=== PATIENT | male | born 1980 | race Caucasian/White ===

== ENCOUNTER 2025-07-04 00:23 | Emergency (ER) | payer SELFPAY ==
[2025-07-04 00:24] VITALS: BP 150/79; PULSE 103; TEMP 36.6; O2SAT 98; BMI 27.9
[2025-07-04 00:30] VITALS: O2SAT 98
--- OUTSIDE RECORDS SUMMARY | 2025-07-04 00:35 | XMS_ITS | Clinical Summary ---
Author Organization [facility] Address [address] [place] [address] Care Team Providers Care Diesel Technology Instructor Name Role Phone Carla Martínez NP Unavailable Monty Kee MD Primary Care Provider Social History Tobacco Use Types Packs/Day Years Used Date Smoking Tobacco: Never Assessed Sex and Gender Information Value Date Recorded Sex Assigned at Not on file Legal Sex Male 1:24 PM EDT Gender Identity Not on file Sexual Orientation Not on file Plan of Treatment Not on file Insurance [facility] Care Teams Diesel Technology Instructor Relationship Specialty Start Date End Date Monty Kee MD PCP - General Family Medicine 04/14/24 Carla Martínez NP Referring Physician Family Medicine 04/14/24
--- OUTSIDE RECORDS SUMMARY | 2025-07-04 00:36 | XMS_ITS | Encounter Summary ---
Author Organization [facility] Address [facility] [id number] [address] [place] [address] Care Team Providers Care Inventory Control Associate Name Role Phone Carla Martínez QUENCHING CAR OPERATOR-RADIO RECORDER Primary Care Provide r Reason for Visit * Reason Comments Med Refill Encounter Details Date Type Department Care Team (Late st Contact Info) Description 12/11/2023 Refill [facility] [address] [place] [address] Carla Martínez APRN-RADIO RECORDER [address] [place] [address] Social History Tobacco Use Types Packs/Day Years Used Date Smoking Tobacco: Every Day Cigarettes Smokeless Tobacco: Never Alcohol Use Standard Drinks/Week Comments Not Currently 0 (1 standard drink = 0.6 oz pur e alcohol) occasional Overall Financial Resource Strain (CARDIA) Answe r Date Recorded How hard is it for you to pa y for the very basics like food, housing, medical care, and heating? Not hard at all 12/28/2022 Childcare Answer Date Recorded Childcare Unknown 05/05/2019 Employment Answer Date Recorded Employment Unknown 05/05/2019 Hunger Screening Answer Date Recorded Within the past 12 months we worried whether our food would run out before we got money to buy more. Never True 12/28/2022 Within the past 12 months th e food we bought just didn't last and we didn't have money to get more. Never True 12/28/2022 Sex and Gender Information Value Date Recorded Sex Assigned at Not on file Legal Sex Male 5:21 PM EDT Gender Identity Not on file Sexual Orientation Not on file documented as of this encounter Miscellaneous Notes * Telephone Encounter - FARHAT Garber - 12/11/2023 4:05 PM EST Does he need this refilled or started again? * Telephone Encounter - Nallely Borjas CMA - 12/11/2023 4:05 PM EST Left message for patient to call office to clarify. documented in this encounter Plan of Treatment Not on file documented as of this encounter Visit Diagnoses Not on filedocumented in this encounter Additional Health Concerns Assessment Noted Time A Body Mass Index follow-up plan has been documented for the patient 10/08/2023 8:54 AM EST documented as of this encounter Care Teams Inventory Control Associate Relationship Specialty Start Date End Date Carla Martínez APRN-CNP [address] [place] [address] PCP - General Family Medicine 10/08/23 documented as of this encounter
--- OUTSIDE RECORDS SUMMARY | 2025-07-04 00:36 | XMS_ITS | Encounter Summary ---
Author Organization [facility] [employer] [facility] Address [id number] [address] [place] [address] Care Team Providers Care Higher Education Administrator Name Role Phone Carla Martínez HIGH SCHOOL HVAC R INSTRUCTOR-DIE TRY OUT WORKER STAMPING Primary Care Provide r Reason for Visit * Reason Comments Med Refill Encounter Details Date Type Department Care Team (Late st Contact Info) Description 06/30/2025 Refill [facility] [address] [place] [address] Carla Martínez APRN-CNP [address] [place], [place] [id number] Social History Tobacco Use Types Packs/Day Years Used Date Smoking Tobacco: Former Cigarettes 0.5 30 1 994 - 12/11/2023 Smokeless Tobacco: Never Alcohol Use Standard Drinks/Week Comments Yes 2 (1 standard drink = 0.6 oz pure alcohol) occasional (1-2 drinks on his days off work) Overall Financial Resource Strain (CARDIA) Answe r Date Recorded How hard is it for you to pa y for the very basics like food, housing, medical care, and heating? Not hard at all 12/28/2022 PHQ-2 Answer Date Recorded Total Score 0 12/08/2024 Childcare Answer Date Recorded Childcare Unknown 05/05/2019 Employment Answer Date Recorded Employment Unknown 05/05/2019 Hunger Screening Answer Date Recorded Within the past 12 months we worried whether our food would run out before we got money to buy more. Never True 12/08/2024 Within the past 12 months th e food we bought just didn't last and we didn't have money to get more. Never True 12/08/2024 Sex and Gender Information Value Date Recorded Sex Assigned at Not on file Legal Sex Male 5:21 PM EDT Gender Identity Not on file Sexual Orientation Not on file documented as of this encounter Plan of Treatment Not on file documented as of this encounter Visit Diagnoses Not on filedocumented in this encounter Additional Health Concerns Assessment Noted Time PHQ-9 Depression Total Score: 0 12/08/19 25 1:31 PM EST A Body Mass Index follow-up plan has been documented for the patient 05/11/2024 9:11 AM EDT documented as of this encounter Care Teams Higher Education Administrator Relationship Specialty Start Date End Date Carla Martínez APRN-AUGUSTINE [address] [place] [address] PCP - General Family Medicine 10/08/23 documented as of this encounter
--- OUTSIDE RECORDS SUMMARY | 2025-07-04 00:36 | XMS_ITS | Encounter Summary ---
Author Organization [employer] Sys [employer] Address [id number] [address] [place] [address] Care Team Providers Care Gristmill Operator Name Role Phone Carla Martínez PHYSICAL EDUCATION TEACHER-PARALEGAL SPECIALIST Primary Care Provide r Encounter Details Date Type Department Care Team (Late st Contact Info) Description 12/18/2023 Orders Only [facility] [address] [place] [address] Carla Martínez APRN-CNP [address] [place], [place] [phone] Social History Tobacco Use Types Packs/Day Years [...] documented as of this encounter Care Teams Gristmill Operator Relationship Specialty Start Date End Date Carla Martínez APRN-AUGUSTINE [address] [place] [address] PCP - General Family Medicine 10/08/23 documented as of this encounter
--- OUTSIDE RECORDS SUMMARY | 2025-07-04 00:36 | XMS_ITS | Clinical Summary ---
Author Organization [employer] Address [id number] [address] [place] [address] Care Team Providers Care Child Care Associate Name Role Phone RubioCarla carlos DISASSEMBLER PRODUCT-ACCOUNT GENERAL MANAGER Primary Care Provide r Allergies No known active allergies Medications albuterol (PROVENTIL HFA;VENTOLIN HFA) 90 mcg/actuation inhalerIndicati ons:chronic obstructive pulmonary disease Inhale 2 puffs every 6 (six) hours as needed for wheezing Indications: chronic obstructive pulmonary disease. 18 g 5 10/08/20 23 Active fluticasone propion-salmete roL (ADVAIR DISKUS) 250-50 mcg/dose DISKUSIndicatio ns:Chronic obstructive pulmonary disease, unspecified COPD type (CMS-HCC),Moder ate persistent asthma without complication Inhale 1 puff in the morning and 1 puff before bedtime. 60 each 11 12/18/19 24 Active albuterol (PROVENTIL,VENT JOSE) 2.5 mg /3 mL (0.083 %) nebulizer solutionIndicat ions:Chronic obstructive pulmonary disease, unspecified COPD type (CMS-HCC),Moder ate persistent asthma without complication Inhale 3 mL (2.5 mg total) by nebulization 4 (four) times a day as needed for shortness of breath or wheezing. 360 mL 6 12/18/19 24 Active sildenafiL (VIAGRA) 100 mg tablet Take 1 tablet (100 mg total) by mouth as needed for erectile dysfunction. 30 tablet 12/08/19 25 Active famotidine (PEPCID) 20 mg tablet Take 1 tablet (20 mg total) by mouth in the morning and 1 tablet (20 mg total) before bedtime. 60 tablet 12/08/19 25 Active hydrOXYzine (ATARAX) 50 mg tablet Take 1 tablet (50 mg total) by mouth nightly as needed for itching or anxiety. 30 tablet 12/08/19 25 Active sertraline (ZOLOFT) 50 mg tablet TAKE 1 TABLET BY MOUTH IN THE MORNING 90 tablet 06/30/20 25 Active sertraline (ZOLOFT) 50 mg tablet Take 1 tablet (50 mg total) by mouth in the morning. 90 tablet 1 12/08/19 25 2024 Discontinued Active Problems Problem Noted Date Diagnosed Date Moderate persistent asthma without complication 12/18/2023 COPD (chronic obstructive pulmonary disease) Dizziness 12/27/2022 Erectile dysfunction 03/30/2018 Encounters Date Type Department Care Team Description 06/30/2025 Refill [facility] [address] [facility] [place] [address] Anni Huff LPN 06/30/2025 Refill [facility] [place] [address] Carla Martínez APRN-AUGUSTINE from Last 3 Months Immunizations No known immunizations Social History Tobacco Use Types Packs/Day Years Used Date Smoking Tobacco: Former Cigarettes 0.5 30 1 994 - 12/11/2023 Smokeless Tobacco: Never Tobacco Cessation:Counseling Given: Not Answered Alcohol Use Standard Drinks/Week Comments Yes 2 [...] on file Sexual Orientation Not on file Last Filed Vital Signs Vital Sign Reading Time Taken Comments Blood Pressure 124/60 12/08/2024 1:31 PM EST Pulse 80 12/08/2024 1:31 PM EST Temperature 36.7 C (98.1 F) 12/28/2022 11:51 AM EST Respiratory Rate 18 12/08/2024 1:31 PM EST Oxygen Saturation 96% 12/08/2024 1:31 PM EST Inhaled Oxygen Concentration - - Weight 105.2 kg (232 lb) 12/08/2024 1:31 PM EST Height 177.8 cm (5' 10 ) 12/18/2023 11:07 AM EST Body Mass Index 33.29 12/18/2023 11:07 AM EST Plan of Treatment Health Maintenance Due Date Last Done Comments DTaP,Tdap and Td Vaccines (1 - Tdap) 1997 Influenza Vaccine 07/25/2025 08/28/2021, , 10/05/2018 Adult BMI Screening 12/08/2025 12/08/2024 Depression Screening 12/08/2025 12/08/2024 Tobacco Screening 12/08/2025 12/08/2024 Medical Devices Not on file Insurance [employer] Advance Directives * Full Code (Latest Code Status on File) Date Activated Date Inactivated Comments 12/27/2022 11:22 PM 12/28/2022 6:29 PM Care Teams Child Care Associate Relationship Specialty Start Date End Date Carla Martínez APRN-ACCOUNT GENERAL MANAGER [address] [place] [address] PCP - General Family Medicine 10/08/23
--- OUTSIDE RECORDS SUMMARY | 2025-07-04 00:36 | XMS_ITS | Encounter Summary ---
Author Organization [email or web address] Sys tem Address [id number] [address] [place] [address] Care Team Providers Care Quarry Plug And Feather Driller Name Role Phone Carla Martínez SHIFT LAB TECHNICIAN-NP Primary Care Provide r Reason for Visit * Reason Onset Date Comments Med Refill 06/30/2025 Encounter Details Date Type Department Care Team (Late st Contact Info) Description 06/30/2025 Refill [facility] [address] [place] [phone] Anni Huff LPN Social History Tobacco Use Types Packs/Day Years [...] documented as of this encounter Care Teams Quarry Plug And Feather Driller Relationship Specialty Start Date End Date Carla Martínez APRN-AUGUSTINE [address] [place] [address] PCP - General Family Medicine 10/08/23 documented as of this encounter
--- OUTSIDE RECORDS SUMMARY | 2025-07-04 00:36 | XMS_ITS | Encounter Summary ---
Author Organization [facility] [employer] [facility] Address [id number] [address] [place] [address] Care Team Providers Care Double End Chucking Machine Operator Name Role Phone Carla Martínez HOUSEKEEPER AND LAUNDRY ASSISTANT-VEST PRESSER Primary Care Provide r Reason for Visit * Reason Comments Med Refill Encounter Details Date Type Department Care Team (Late st Contact Info) Description 12/19/2023 Refill [facility] [address] [place] [address] Carla Martínez APRN-CNP [address] [place], [place] [phone] Social History Tobacco Use Types Packs/Day Years [...] documented as of this encounter Care Teams Double End Chucking Machine Operator Relationship Specialty Start Date End Date Carla Martínez APRN-AUGUSTINE [address] [place] [address] PCP - General Family Medicine 10/08/23 documented as of this encounter
--- OUTSIDE RECORDS SUMMARY | 2025-07-04 00:36 | XMS_ITS | Encounter Summary ---
Author Organization [facility] Address [id number] [address] [place] [address] Care Team Providers Care Medical Imaging Director Name Role Phone Carla Martínez STAFF RESEARCH ASSOCIATE-PATIENT CARE DIRECTOR Primary Care Provide r Reason for Visit * Reason Comments Med Refill Encounter Details Date Type Department Care Team ([facility] st Contact Info) Description 10/13/2024 Refill [facility] [address] [place] [address] Carla Martínez APRN-CNP [address] [place], [place] [phone] Social History Tobacco Use Types Packs/Day Years [...] documented as of this encounter Care Teams Medical Imaging Director Relationship Specialty Start Date End Date Carla Martínez APRN-AUGUSTINE [address] [place] [address] PCP - General Family Medicine 10/08/23 documented as of this encounter
[2025-07-04] MEDS: IPRATROPIUM/ALBUTEROL SULFATE 3 ML AMPUL.NEB IH (00:37)
[2025-07-04 00:39] VITALS: PULSE 99; O2SAT 97
--- NOTE | 2025-07-04 00:59 | ED.GENADUL1 ---
HPI HPI - General Adult General Chief complaint: Shortness of Breath/Dyspnea Stated complaint: SOB Time Seen by Provider: 07/04/25 00:24 Source: patient Mode of arrival: ambulance Limitations: no limitations History of Present Illness HPI narrative: Patient is a 44-year-old male presenting to the emergency department from work for concerns of shortness of breath. 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 He states he felt short of breath, and as if his COPD/asthma was acting up. Once he left that environment, he states he felt significantly improved. His work called EMS for him. Patient states that he feels mildly short of breath, but is otherwise asymptomatic. He denies any chest pain. No cough, congestion, or flulike symptoms. No fevers or chills. No hemoptysis. No nausea or vomiting. No headaches. He does not use home oxygen. Related Data Home Medications ?Medication ?Instructions ?Recorded ?Confirmed sertraline 50 mg tablet mg 07/04/25 Allergies Allergy/AdvReac Type Severity Reaction Status Date / Time No Known Drug Allergies Allergy Verified 07/04/25 00:27 Review of Systems ROS Status of ROS 10 or more systems reviewed and unremarkable except as noted in history and below PFSH PFSH Social History Little interest or pleasure in doing things: not at all Feeling down, depressed, or hopeless: not at all Exam Narrative Exam Narrative: CONSTITUTIONAL: Well-appearing, answering questions and following commands appropriately SKIN: Was warm and dry. EYES: Sclerae white. EARS, NOSE, THROAT: Moist oral mucosa. RESPIRATORY: Clear to auscultation bilaterally, no wheezes, crackles, or stridor, no use of accessory muscles CARDIOVASCULAR: Normal rate and regular rhythm. There is no S3, S4, murmur, rub. GASTROINTESTINAL: Abdomen is nondistended. MUSCULOSKELETAL: No peripheral edema. NEUROLOGIC: Patient is awake and alert. Facies were symmetrical. Constitutional Vital Signs, click to edit/add: Last Vital Signs Temp 98 F 07/04/25 00:24 Pulse 99 H 07/04/25 00:39 Resp 18 07/04/25 00:39 BP 150/79 H 07/04/25 00:24 Pulse Ox 97 07/04/25 00:39 O2 Del Method Room Air 07/04/25 00:39 Course Vital Signs Vital signs: Vital Signs Temperature 98 F 07/04/25 00:24 Pulse Rate 103 H 07/04/25 00:24 Respiratory Rate 18 07/04/25 00:24 Blood Pressure 150/79 H 07/04/25 00:24 Pulse Oximetry 98 07/04/25 00:24 Oxygen Delivery Method Room Air 07/04/25 00:24 Temperature 98 F 07/04/25 00:24 Pulse Rate 99 H 07/04/25 00:39 Respiratory Rate 18 07/04/25 00:39 Blood Pressure 150/79 H 07/04/25 00:24 Pulse Oximetry 97 07/04/25 00:39 Oxygen Delivery Method Room Air 07/04/25 00:39 Medical Decision Making MDM Narrative Medical decision making narrative: Patient is a 44-year-old male, history significant for COPD/asthma not on home oxygen, presenting to the emergency department from work with acute shortness of breath after being exposed to industrial fumes. Vital signs on arrival are within normal limits. He is afebrile and hemodynamically stable. Examination was overall unremarkable. His lungs are clear to auscultation bilaterally without wheezing. He is not using any accessory muscles, speaking full sentences, and is not in acute respiratory distress. Differential diagnosis includes mild COPD/asthma exacerbation, or irritation from the fumes from work. He is not hypoxic, complaining of chest pain, has clear breath sounds, do not feel an x-ray is indicated at this time. Patient will be treated with nebulized albuterol/ipratropium and dexamethasone. Twelve-lead EKG obtained by EMS and interpreted by myself demonstrated sinus tachycardia at a rate of 105 without evidence of acute myocardial ischemia. Normal axis. No ST segment elevations. QRS, [place], and QTc interval within normal limits. On reevaluation, patient states he feels significantly improved and feels comfortably discharged home. Patient was given an albuterol inhaler to go home with. He is instructed follow-up with his PCP further further care. Return precautions were given including any new or concerning symptoms. Patient understands and agrees to the plan. ECG Data Attestation: I personally reviewed and interpreted this ECG as follows: Discharge Plan Discharge Chief Complaint: Shortness of Breath/Dyspnea Clinical Impression: Asthma with acute exacerbation Patient Disposition: Home, Self-Care Time of Disposition Decision: 00:46 Condition: Good Mode of Transportation: Private Vehicle Prescriptions / Home Meds: No Action sertraline 50 mg tablet Print Language: Kittitian Instructions: Asthma (ED) Referrals: Physician,Non-Staff, MD [Primary Care Provider] - 1 week
[2025-07-04] MEDS: DEXAMETHASONE 4 MG TABLET PO (01:15)
[2025-07-04] MEDS: ALBUTEROL SULFATE 200 PUFF/6.7 GM INHALER IH (01:15)
[2025-07-04 01:28] VITALS: PULSE 98; O2SAT 98
== END 2025-07-04 01:30 | disposition home or self-care (01) ==
PROVIDERS: Emergency Provider Student in an Organized Health Care Education/Training Program; PCP Nurse Practitioner Family
DX: J45.901 Unspecified asthma with (acute) exacerbation (principal); R06.02 Shortness of breath
CPT/HCPCS: 94640; 99283; J8540